=== PATIENT | female | born 1990 | race Hispanic/Latino ===

== ENCOUNTER 2017-07-02 22:40 | Emergency (ER) | payer BC ==
[2017-07-02 22:51] VITALS: BP 125/81; PULSE 80; RESP 18; TEMP 98; O2SAT 100
[2017-07-02] MEDS ORDERED: Absorbable Gelatin Sponge Size 12-7 ONE (23:00)
--- NOTE | 2017-07-02 23:02 | ED PDOC ---
HPI: General Adult Time Seen by Provider: 07/02/17 22:53 Chief Complaint (Nursing): Finger,Hand,&Wrist History Per: Patient Additional Complaint(s): Pt. states earlier today she accidentally cut her L 3rd digit with a razor while at home. States she's had a hard time stopping the bleeding since. Past Medical History Reviewed: Historical Data, Nursing Documentation, Vital Signs Vital Signs: Last Vital Signs Temp 98 F 07/02/17 22:47 Pulse 80 07/02/17 22:47 Resp 18 07/02/17 22:47 BP 125/81 07/02/17 22:47 Pulse Ox 100 07/02/17 23:02 - Medical History PMH: Hypothyroidism - Family History Family History: States: No Known Family Hx - Home Medications Home Medications: Ambulatory Orders Medication Instructions Recorded No Known Home Med 07/02/17 - Allergies Allergies/Adverse Reactions: Allergies Allergy/AdvReac Type Severity Reaction Status Date / Time acetaminophen [From Percocet] AdvReac dry mouth Verified 07/02/17 22:47 oxycodone [From Percocet] AdvReac dry mouth Verified 07/02/17 22:47 Review of Systems ROS Statement: Except As Marked, All Systems Reviewed And Found Negative Physical Exam - Physical Exam Appears: Positive for: Well, Non-toxic, No Acute Distress Skin: Positive for: Normal Color, Warm. Negative for: Rash Pulses-Radial (L): 2+ Pulses-Radial (R): 2+ Extremity: Positive for: Other (L 3rd digit on distal phalanx with superficial avulsion with active non-pulsatile bleeding with nail intact; cap refill < 2 seconds) - ECG O2 Sat by Pulse Oximetry: 100 - Progress ED Course And Treament: Wound irrigated heavily with NS. Gelfoam dressing applied. Disposition - Clinical Impression Clinical Impression: Skin avulsion - Patient ED Disposition Is Patient to be Admitted: No - Disposition Disposition: Routine/Home Disposition Time: 23:25 Condition: STABLE Instructions: Skin Avulsion (ED) Forms: [employer] (E[place]ian)
== END 2017-07-02 23:25 | disposition home or self-care (01) ==
LOC: H.ER 22:40
DX: S61.210A Laceration without foreign body of right index finger without damage to nail, initial encounter (principal); W26.8XXA Contact with other sharp object(s), not elsewhere classified, initial encounter; Y92.89 Other specified places as the place of occurrence of the external cause; E03.9 Hypothyroidism, unspecified